=== PATIENT | female | born 1960 | race Caucasian/White ===

== ENCOUNTER 2021-08-14 14:01 | Emergency (ER) | payer SELFPAY ==
[2021-08-14 14:27] VITALS: BP 116/61; PULSE 74; RESP 18; TEMP 36.6; O2SAT 99
--- NOTE | 2021-08-14 15:58 | PC.NURSE ---
patient states that the wait is too long and left er
== END 2021-08-14 16:00 | disposition left against medical advice (07) ==
DX: M25.512 Pain in left shoulder (principal)
CPT/HCPCS: 99199

== ENCOUNTER 2022-09-17 08:30 | Outpatient (CLI) | payer OTHER, SELFPAY ==
--- NOTE | ~2022-09-17 | CT_ITS ---
Noncontrast CT scan of the thoracic spine CLINICAL HISTORY: Pain TECHNIQUE: Axial noncontrast imaging of the thoracic spine was performed. Sagittal and coronal reform atted images were constructed. Dose reduction technique was used on this scan by utilizing automated exposure control and iterative reconstruction technique. FINDINGS: There is no fracture or subluxation of the thoracic spine. Vertebral bodies maintain normal height and alignment. Intervertebral disc spaces are relatively well preserved throughout the thorac ic spine. No definite disc bulge or herniation. No distinct evidence for spinal canal stenosis or cord compress ion. Paravertebral soft tissues are unremarkable. IMPRESSION: No significant abnormality identified. Reviewed, dictated and finalized at location . [facility] [employer]
--- NOTE | ~2022-09-17 | CT_ITS ---
Noncontrast CT scan of the cervical spine Technique: Multiple contiguous axial [address] images of the cervical spine were obtained and rec onstructed in 2D sagittal and coronal planes on the acquisition scanner. Dose reduction technique was used on this scan by utilizing automated exposure control, adjustment of the mA and/or kV according to patient size. Clinical History: Pain Findings: No fractures or dislocations. There is anterior fusion from C4 through C7 with anterior pl ate and fixation screws, as well as fusion across the relevant disc spaces. There is moderate degener ative disc change at C7-T1. There is left facet arthropathy at C2-C3, mild overall. There is advanced right facet joint arthropathy at C3-C4, with probable right neural foraminal narrowing. No preverteb ral soft tissue swelling. Impression: No fracture or subluxation of the cervical spine. Anterior fusion from C4 through C7, as detailed above. Additional mild degenerative spondylosis, as detailed above. Reviewed, dictated and finalized at [facility]. DIAL MASSEUR Impression: No fracture or subluxation of the cervical spine. Anterior fusion from C4 through C7, as detailed above. Additional mild degenerative spondylosis, as detailed above.
== END 2022-09-17 08:31 | disposition home or self-care (01) ==
PROVIDERS: PCP Internal Medicine; Visit Provider Internal Medicine
DX: M54.6 Pain in thoracic spine (principal); Z98.1 Arthrodesis status; M47.892 Other spondylosis, cervical region
CPT/HCPCS: 72125; 72128